=== PATIENT | male | born 1965 | race Caucasian/White ===

== ENCOUNTER 2017-08-30 17:55 | Emergency (ER) | payer SELFPAY ==
[2017-08-30 17:57] VITALS: BP 139/102
--- NOTE | 2017-08-30 18:09 | ER Report ---
History and Physical Time Seen By MD: 18:08 Hx. of Stated Complaint: PT HIT GLASS WITH L HAND, LACERATION TOP OF L HAND AND BLEEDING, NO PAIN AND FULL ROM HPI/ROS CHIEF COMPLAINT: Hand laceration HISTORY OF PRESENT ILLNESS: 52-year-old male patient presents to emergency room with complaint of a hand laceration. Patient states that he cut his hand on a window that he had placed yesterday. Patient states that he had significant amounts of bleeding. He decided to come to the hospital for further evaluation. He states that he has a significant phobia of needles. He states that he is unsure of his last tetanus shot, however there was several years ago. Patient adamantly refuses to get a tetanus shot. He denies any numbness tingling to the hand, states he is able to move the hand without any difficulties. Patient has not taken any medication for this. REVIEW OF SYSTEMS: Respiratory: No cough, no dyspnea. Cardiovascular: No chest pain, no palpitations. Gastrointestinal: No vomiting, no abdominal pain. Musculoskeletal: No back pain. Allergies: Coded Allergies: No Known Drug Allergies (Unverified , 08/30/17) Home Meds Active Scripts Cephalexin 500 Mg Tab (KEFLEX 500 MG TAB) 500 Mg Tablet, 500 MG PO Q6H, #20 TAB Prov:EDELMIRA FAM 08/30/17 Past Medical/Surgical History Patient denies any pertinent medical history. Patient has surgical history of tonsillectomy and appendectomy. Reviewed Nurses Notes: Yes Constitutional Vital Sign - Last 24 Hours 08/30/17 17:57 Temp 98.5 Pulse 72 Resp 16 B/P (MAP) 139/102 Pulse Ox 94 O2 Delivery Room Air Physical Exam General Appearance: The patient is alert, has no immediate need for airway protection and no current signs of toxicity. Respiratory: Chest is non tender, lungs are clear to auscultation. Cardiac: regular rate and rhythm Musculoskeletal: Extremities have full range of motion and are non tender. Patient has good strength and mobility with the left hand, he does have a 15 cm laceration to the left hand. Skin: No rashes or lesions. DIFFERENTIAL DIAGNOSIS: After history and physical exam differential diagnosis was considered for laceration. Medical Decision Making EKG/Imaging Imaging Examination: HAND COMPLETE LEFT Comparison: None. History: laceration caused by glass Findings: Ulnar and dorsal soft tissue laceration. There are a few punctate foreign bodies in the dorsal soft tissues near the fifth metacarpophalangeal joint. No fracture or malalignment. Joint spaces are fairly well-preserved. IMPRESSION: Left hand dorsal and ulnar soft tissue laceration with a few punctate foreign bodies in the soft tissues near the fifth metacarpophalangeal joint. Report Dictated By: Alvaro Lester MD at 08/30/2017 6:36 PM Report E-Signed By: Alvaro Lester MD at 08/30/2017 6:38 PM ED Course/Re-evaluation ED Course Patient was admitted in exam room, history and physical were obtained. Differential diagnoses were considered. On examination patient has a significant laceration to the left hand, does go into the subcutaneous tissue. Patient has good mobility with flexion extension of the fingers. Patient denies any numbness tingling. X-rays done of the left hand which did show no fractures , did have some small foreign bodies retained by the fifth MCP. The wound was anesthetized, cleaned and repaired described below. I did not visualize any foreign bodies my evaluation. We'll go ahead and discharge patient home at this time. Patient will be given a prescription for Keflex to prevent infection. He is to limit his activity by pain. He is to take Tylenol or ibuprofen as needed for pain. Procedure: Laceration repair. Verbal consent was obtained from the patient. The 15 cm laceration on the left hand was anesthetized in the usual fashion. The wound was scrubbed, draped and explored to its base with a gloved finger. There were no deep structures involved. No tendon injury was identified. The wound was repaired with 29 simple interrupted sutures using 5-0 Prolene material. The wound repair was simple. The procedure was performed by myself. Decision to Disposition Date: Aug 30, 2017 Decision to Disposition Time: 19:38 Depart Departure Latest Vital Signs Vital Signs Date Time Temp Pulse Resp B/P (MAP) Pulse Ox O2 Delivery O2 Flow Rate FiO2 08/30/17 17:57 98.5 72 16 139/102 94 Room Air Impression: Primary Impression: Hand laceration Condition: Improved Disposition: HOME OR SELF-CARE New Scripts Cephalexin 500 Mg Tab (KEFLEX 500 MG TAB) 500 Mg Tablet 500 MG PO Q6H, #20 TAB Prov: EDELMIRA FAM 08/30/17 Patient Instructions: Hand Laceration Additional Instructions: Keep wound dry for 48 hours. Follow up with your primary care provider in the next 7-10 days to have sutures removed. Monitor for signs of infection; redness, swelling, heat, discharge, increasing pain or red streaking. Take Tylenol or Ibuprofen as needed for pain. Return to the ER with any concerns. You may change dressing as needed. Problem Qualifiers Primary Impression: Hand laceration Encounter type: initial encounter Foreign body presence: with foreign body Laterality: left Qualified Codes: S61.422A - Laceration with foreign body of left hand, initial encounter EDELMIRA FAM Aug 30, 2017 18:09
--- NOTE | 2017-08-30 18:43 | RADIOLOGY IMAGING REPORT ---
FACILITY: [facility] PATIENT NAME: Hossein Snider : 1965 MR: [id number] V: [id number] EXAM DATE: ORDERING PHYSICIAN: EDELMIRA FAM TECHNOLOGIST: Location: [facility] [place] Patient: Hossein Snider : 1965 Visit/Account:[id number] Date of Sevice: 08/30/2017 Examination: HAND COMPLETE LEFT Comparison: None. History: laceration caused by glass Findings: Ulnar and dorsal soft tissue laceration. There are a few punctate foreign bodies in the navid sonam soft tissues near the fifth metacarpophalangeal joint. No fracture or malalignment. Joint spaces are fairly well-preserved. IMPRESSION: Left hand dorsal and ulnar soft tissue laceration with a few punctate foreign bodies in the soft tiss ues near the fifth metacarpophalangeal joint. Report Dictated By: Alvaro Lester MD at 08/30/2017 6:36 PM Report E-Signed By: Alvaro Lester MD at 08/30/2017 6:38 PM [id number]
[2017-08-30] MEDS ORDERED: CEPH500T7 PO (19:39)
== END 2017-08-30 19:50 | disposition home or self-care (01) ==
LOC: ER 18:05
DX: S61.412A Laceration without foreign body of left hand, initial encounter (principal); W25.XXXA Contact with sharp glass, initial encounter
CPT/HCPCS: 99283

== ENCOUNTER → 2017-08-30 | Outpatient (CLI) | payer SELFPAY ==
[~2017-08-30] MED LIST: CEPH500T7 PO
== END ==
LOC: AMB 17:44
PROVIDERS: ATTEND Nurse Practitioner
DX: S61.412A Laceration without foreign body of left hand, initial encounter (principal); F10.129 Alcohol abuse with intoxication, unspecified; W25.XXXA Contact with sharp glass, initial encounter
CPT/HCPCS: A0425; A0429